=== PATIENT | male | born 1945 | race Caucasian/White ===

== ENCOUNTER 2017-06-18 09:59 | Emergency (ER) | payer MEDICARE ==
[~2017-06-18] VITALS: Ht 170.2 cm; Wt 86.4 kg
[~2017-06-18 09:59] MED LIST: ASPI81 PO; ATEN25TA PO
[2017-06-18] MEDS ORDERED: TAMS0.4C32 PO (10:31)
[2017-06-18 12:50] VITALS: BP 154/94
[2017-06-18 12:59] LABS: APPEARANCE,URINE CLEAR (CLEAR); GLUCOSE, URINE (UA) NEGATIVE (NEGATIVE); KETONES,URINE NEGATIVE (NEGATIVE); LEUKOCYTE ESTERASE ,URINE NEGATIVE (NEGATIVE); OCCULT BLOOD,URINE NEGATIVE (NEGATIVE); PH,URINE 5.5 (5.0-8.0); PROTEIN,URINE NEGATIVE (NEGATIVE)
[2017-06-18 13:02] LABS: ADD UA MICROSCOPIC NO
== END 2017-06-18 13:46 | disposition home or self-care (01) ==
LOC: EMS 10:00
DX: R33.9 Retention of urine, unspecified (principal); I10 Essential (primary) hypertension; E78.00 Pure hypercholesterolemia, unspecified; I25.2 Old myocardial infarction
CPT/HCPCS: 51702; 99284

== ENCOUNTER 2017-07-23 09:23 | Emergency (ER) | payer MEDICARE ==
[~2017-07-23] VITALS: Ht 170.2 cm; Wt 86.4 kg
[~2017-07-23 09:23] MED LIST changes: +TAMS0.4C32 PO
[2017-07-23 10:07] VITALS: BP 158/89
[2017-07-23 11:04] LABS: APPEARANCE,URINE CLOUDY (CLEAR); BILIRUBIN,URINE NEGATIVE (NEGATIVE); GLUCOSE, URINE (UA) NEGATIVE (NEGATIVE); KETONES,URINE NEGATIVE (NEGATIVE); LEUKOCYTE ESTERASE ,URINE MODERATE (NEGATIVE); NITRATE,URINE NEGATIVE (NEGATIVE); OCCULT BLOOD,URINE LARGE (NEGATIVE); PH,URINE 5.5 (5.0-8.0); PROTEIN,URINE NEGATIVE (NEGATIVE); UROBILINOGEN,URINE 0.2 mg/dL (<=1.0)
[2017-07-23 11:12] LABS: RBC,URINE >100 /HPF (0-2)
[2017-07-23 11:13] LABS: WBC,URINE 26-50 /HPF (0-5)
[2017-07-23 11:14] LABS: BACTERIA,URINE Many /HPF (None Seen)
[2017-07-23 11:15] LABS: MUCUS,URINE Rare LPF (None Seen); SQUAMOUS EPITHELIAL CELL,UR None Seen /LPF (None Seen)
== END 2017-07-23 10:55 | disposition home or self-care (01) ==
LOC: EMS 09:24
DX: R33.9 Retention of urine, unspecified (principal); N39.0 Urinary tract infection, site not specified; I10 Essential (primary) hypertension; E78.00 Pure hypercholesterolemia, unspecified; I25.2 Old myocardial infarction
CPT/HCPCS: 51702; 87086; 99284

== ENCOUNTER 2018-04-18 18:43 | Emergency (ER) | payer MEDICARE ==
[~2018-04-18] VITALS: Ht 170.2 cm; Wt 100.0 kg
[2018-04-18] MEDS ORDERED: SULF1TAB42 PO (18:52)
[2018-04-18 20:39] LABS: APPEARANCE,URINE CLEAR (CLEAR); BILIRUBIN,URINE NEGATIVE (NEGATIVE); GLUCOSE, URINE (UA) NEGATIVE (NEGATIVE); KETONES,URINE NEGATIVE (NEGATIVE); LEUKOCYTE ESTERASE ,URINE NEGATIVE (NEGATIVE); NITRATE,URINE NEGATIVE (NEGATIVE); OCCULT BLOOD,URINE TRACE (NEGATIVE); PH,URINE 5.5 (5.0-8.0); PROTEIN,URINE NEGATIVE (NEGATIVE); UROBILINOGEN,URINE 0.2 mg/dL (<=1.0)
[2018-04-18 20:49] LABS: BACTERIA,URINE None Seen /HPF (None Seen); RBC,URINE 0-2 /HPF (0-2); SQUAMOUS EPITHELIAL CELL,UR Rare /LPF (None Seen); WBC,URINE 0-2 /HPF (0-5)
[2018-04-18 20:50] LABS: MUCUS,URINE Few LPF (None Seen)
[2018-04-18 21:24] VITALS: BP 148/81
== END 2018-04-18 21:51 | disposition home or self-care (01) ==
LOC: EMS 18:44
DX: N40.1 Benign prostatic hyperplasia with lower urinary tract symptoms (principal); R33.8 Other retention of urine; E78.00 Pure hypercholesterolemia, unspecified; I10 Essential (primary) hypertension; I25.2 Old myocardial infarction; Z79.82 Long term (current) use of aspirin; Z79.899 Other long term (current) drug therapy
CPT/HCPCS: 51702

== ENCOUNTER 2018-04-23 02:42 | Emergency (ER) | payer MEDICARE ==
[~2018-04-23] VITALS: Ht 170.2 cm; Wt 88.6 kg
[~2018-04-23 02:42] MED LIST changes: +SULF1TAB42 PO
[2018-04-23] MEDS ORDERED: ATOR10TA84 PO (02:54)
[2018-04-23 05:05] LABS: APPEARANCE,URINE CLEAR (CLEAR); BILIRUBIN,URINE NEGATIVE (NEGATIVE); GLUCOSE, URINE (UA) NEGATIVE (NEGATIVE); KETONES,URINE NEGATIVE (NEGATIVE); LEUKOCYTE ESTERASE ,URINE TRACE (NEGATIVE); NITRATE,URINE NEGATIVE (NEGATIVE); OCCULT BLOOD,URINE LARGE (NEGATIVE); PROTEIN,URINE TRACE (NEGATIVE); UROBILINOGEN,URINE 0.2 mg/dL (<=1.0)
[2018-04-23 05:23] LABS: BACTERIA,URINE Few /HPF (None Seen); RBC,URINE 51-100 /HPF (0-2)
[2018-04-23 05:31] VITALS: BP 191/99
== END 2018-04-23 05:43 | disposition home or self-care (01) ==
LOC: EMS 02:43
DX: T83.098A Other mechanical complication of other urinary catheter, initial encounter (principal); N40.1 Benign prostatic hyperplasia with lower urinary tract symptoms; R33.8 Other retention of urine; R31.9 Hematuria, unspecified; I10 Essential (primary) hypertension; E78.00 Pure hypercholesterolemia, unspecified; I25.2 Old myocardial infarction; Z79.82 Long term (current) use of aspirin; Z79.899 Other long term (current) drug therapy; Y84.6 Urinary catheterization as the cause of abnormal reaction of the patient, or of later complication, without mention of misadventure at the time of the procedure; Y92.89 Other specified places as the place of occurrence of the external cause
CPT/HCPCS: 51702

== ENCOUNTER 2018-06-18 21:15 | Emergency (ER) | payer MEDICARE ==
[~2018-06-18] VITALS: Ht 170.2 cm; Wt 90.9 kg
[~2018-06-18 21:15] MED LIST changes: +ATOR10TA84 PO
[2018-06-18] MEDS ORDERED: LIDOCAINE 1% 10 ML VIAL INJ ONE (23:15)
[2018-06-18 23:42] VITALS: BP 142/82
== END 2018-06-18 23:46 | disposition home or self-care (01) ==
LOC: EMS 21:16
DX: L02.11 Cutaneous abscess of neck (principal); E78.00 Pure hypercholesterolemia, unspecified; I10 Essential (primary) hypertension; I25.2 Old myocardial infarction; Z79.82 Long term (current) use of aspirin; Z79.899 Other long term (current) drug therapy
CPT/HCPCS: 10060; 99283; J3490

== ENCOUNTER 2019-03-23 01:03 | Emergency (ER) | payer MEDICARE ==
[~2019-03-23] VITALS: Ht 170.2 cm; Wt 86.4 kg
[~2019-03-23 01:03] MED LIST changes: +TAMS-13 PO; -TAMS0.4C32 PO
[2019-03-23 03:16] LABS: APPEARANCE,URINE CLOUDY (CLEAR); BILIRUBIN,URINE NEGATIVE (NEGATIVE); GLUCOSE, URINE (UA) NEGATIVE (NEGATIVE); KETONES,URINE NEGATIVE (NEGATIVE); LEUKOCYTE ESTERASE ,URINE LARGE (NEGATIVE); NITRATE,URINE NEGATIVE (NEGATIVE); OCCULT BLOOD,URINE LARGE (NEGATIVE); PH,URINE 6.5 (5.0-8.0); PROTEIN,URINE POS 1+ (NEGATIVE); UROBILINOGEN,URINE 0.2 mg/dL (<=1.0)
[2019-03-23 03:33] LABS: BACTERIA,URINE Many /HPF (None Seen); RBC,URINE 26-50 /HPF (0-2); SQUAMOUS EPITHELIAL CELL,UR Rare /LPF (None Seen)
[2019-03-23] MEDS ORDERED: CEPHALEXIN MONOHYDRATE 500 MG CAPSULE PO ONE (03:45)
[2019-03-23 04:01] VITALS: BP 132/68
== END 2019-03-23 04:00 | disposition home or self-care (01) ==
LOC: EMS 01:03
DX: N39.0 Urinary tract infection, site not specified (principal); R33.9 Retention of urine, unspecified; I10 Essential (primary) hypertension; I25.2 Old myocardial infarction; E78.00 Pure hypercholesterolemia, unspecified
CPT/HCPCS: 51702; 87086

== ENCOUNTER 2019-10-05 10:51 | Emergency (ER) | payer MEDICARE ==
[~2019-10-05] VITALS: Ht 165.1 cm; Wt 75.0 kg
[~2019-10-05 10:51] MED LIST changes: -ASPI81 PO; -SULF1TAB42 PO
[2019-10-05] MEDS ORDERED: TAMS-13 PO (11:06)
[2019-10-05 11:48] LABS: BILIRUBIN,URINE NEGATIVE (NEGATIVE); GLUCOSE, URINE (UA) NEGATIVE (NEGATIVE); KETONES,URINE NEGATIVE (NEGATIVE); LEUKOCYTE ESTERASE ,URINE MODERATE (NEGATIVE); NITRATE,URINE NEGATIVE (NEGATIVE); OCCULT BLOOD,URINE LARGE (NEGATIVE); PROTEIN,URINE NEGATIVE (NEGATIVE); UROBILINOGEN,URINE 0.2 mg/dL (<=1.0)
[2019-10-05 12:01] LABS: APPEARANCE,URINE SLIGHTLY CLOUDY (CLEAR)
[2019-10-05 12:08] LABS: BACTERIA,URINE Moderate /HPF (None Seen)
[2019-10-05] MEDS ORDERED: CIPROFLOXACIN HCL 250 MG TABLET PO ONE (14:00)
[2019-10-05 14:10] VITALS: BP 142/55
== END 2019-10-05 14:20 | disposition home or self-care (01) ==
LOC: EMS 10:52
DX: N39.0 Urinary tract infection, site not specified (principal); N32.0 Bladder-neck obstruction; R33.9 Retention of urine, unspecified; I10 Essential (primary) hypertension; E78.00 Pure hypercholesterolemia, unspecified; I25.2 Old myocardial infarction
CPT/HCPCS: 51702; 87086

== ENCOUNTER 2019-10-14 08:11 | Emergency (ER) | payer MEDICARE ==
[~2019-10-14] VITALS: Ht 170.2 cm; Wt 86.4 kg
[~2019-10-14 08:11] MED LIST changes: -ATEN25TA PO; -ATOR10TA84 PO
[2019-10-14 09:28] VITALS: BP 120/89
== END 2019-10-14 09:30 | disposition home or self-care (01) ==
LOC: EMS 08:23
DX: R33.9 Retention of urine, unspecified (principal); I10 Essential (primary) hypertension; I25.2 Old myocardial infarction; E78.00 Pure hypercholesterolemia, unspecified
CPT/HCPCS: 51702

== ENCOUNTER 2019-10-18 10:35 | Emergency (ER) | payer MEDICARE ==
[~2019-10-18] VITALS: Ht 170.2 cm; Wt 86.4 kg
[2019-10-18] MEDS ORDERED: FESO4TAB PO (10:40)
[2019-10-18 12:08] LABS: BASOPHILS % (AUTO) 0.8 % (0.0-2.0); EOSINOPHILS % (AUTO) 1.8 % (1.0-6.0); HEMATOCRIT 48.6 % (41-53); HEMOGLOBIN 16.6 g/dL (13.5-17.5); LYMPHOCYTES # (AUTO) 3.1 K/uL (1.0-4.8); LYMPHOCYTES % (AUTO) 30.4 % (22.0-44.0); MEAN CORPUSCULAR HEMOGLOBIN 28.8 pg (26.0-34.0); MEAN CORPUSCULAR HGB CONC 34.2 G/dL (31.0-37.0); MEAN CORPUSCULAR VOLUME 84 fL (80-100); MONOCYTES # (AUTO) 0.9 K/uL (0.1-1.0); MONOCYTES % (AUTO) 9.2 % (2.0-9.0); NEUTROPHILS # (AUTO) 5.8 K/uL (1.8-7.7); NEUTROPHILS % (AUTO) 57.8 % (40.0-70.0); PLATELET COUNT (AUTO) 168 K/uL (150-450); RED BLOOD CELL COUNT(AUTO) 5.78 MIL/uL (4.50-5.90); RED CELL DISTRIBUTION WIDTH 13.3 % (11.5-14.5)
[2019-10-18 12:17] LABS: ANION GAP 6 mmol/L (8-16); CALCIUM, TOTAL 9.8 mg/dL (8.8-10.5); CARBON DIOXIDE 29 mmol/L (22-29); CHLORIDE 100 mmol/L (98-107); CREATININE 0.72 mg/dL (0.60-1.30); GLUCOSE,RANDOM 129 mg/dL (70-110); POTASSIUM 4.5 mmol/L (3.5-5.1); SODIUM SERUM 135 mmol/L (136-145); UREA NITROGEN, BLOOD 14 mg/dL (7-18)
[2019-10-18 12:18] LABS: GLOMERULAR FILTR. RATE CALC > 60 mL/min (>60)
[2019-10-18 12:27] LABS: APPEARANCE,URINE CLOUDY (CLEAR); BILIRUBIN,URINE NEGATIVE (NEGATIVE); GLUCOSE, URINE (UA) NEGATIVE (NEGATIVE); KETONES,URINE NEGATIVE (NEGATIVE); LEUKOCYTE ESTERASE ,URINE LARGE (NEGATIVE); NITRATE,URINE NEGATIVE (NEGATIVE); OCCULT BLOOD,URINE LARGE (NEGATIVE); PROTEIN,URINE TRACE (NEGATIVE); UROBILINOGEN,URINE 0.2 mg/dL (<=1.0)
[2019-10-18 12:41] LABS: BACTERIA,URINE Many /HPF (None Seen); RBC,URINE Full Field /HPF (0-2); SQUAMOUS EPITHELIAL CELL,UR Moderate /LPF (None Seen); WBC,URINE Full Field /HPF (0-5)
[2019-10-18] MEDS ORDERED: CEPHALEXIN MONOHYDRATE 500 MG CAPSULE PO ONE (12:45)
[2019-10-18 16:00] VITALS: BP 123/71
== END 2019-10-18 16:06 | disposition home or self-care (01) ==
LOC: EMS 10:40
DX: R33.9 Retention of urine, unspecified (principal); N39.0 Urinary tract infection, site not specified; R31.9 Hematuria, unspecified; I10 Essential (primary) hypertension; E78.00 Pure hypercholesterolemia, unspecified; Z79.899 Other long term (current) drug therapy
CPT/HCPCS: 51702; 87086

== ENCOUNTER 2020-02-13 08:49 | Emergency (ER) | payer MEDICARE ==
[~2020-02-13] VITALS: Ht 170.2 cm; Wt 88.6 kg
[~2020-02-13 08:49] MED LIST changes: +FESO4TAB PO
[2020-02-13] MEDS ORDERED: ATEN-72 PO (08:55)
[2020-02-13] MEDS ORDERED: ATOR10TA84 PO (08:55)
[2020-02-13] MEDS ORDERED: ASPI-728 PO (08:55)
[2020-02-13 09:31] LABS: BASOPHILS % (AUTO) 0.9 % (0.0-2.0); EOSINOPHILS % (AUTO) 3.9 % (1.0-6.0); HEMATOCRIT 46.7 % (41-53); HEMOGLOBIN 15.8 g/dL (13.5-17.5); LYMPHOCYTES # (AUTO) 1.6 K/uL (1.0-4.8); LYMPHOCYTES % (AUTO) 32.5 % (22.0-44.0); MEAN CORPUSCULAR HEMOGLOBIN 28.7 pg (26.0-34.0); MEAN CORPUSCULAR HGB CONC 33.8 G/dL (31.0-37.0); MEAN CORPUSCULAR VOLUME 85 fL (80-100); MONOCYTES # (AUTO) 0.4 K/uL (0.1-1.0); MONOCYTES % (AUTO) 7.6 % (2.0-9.0); NEUTROPHILS # (AUTO) 2.8 K/uL (1.8-7.7); NEUTROPHILS % (AUTO) 55.1 % (40.0-70.0); PLATELET COUNT (AUTO) 132 K/uL (150-450); RED CELL DISTRIBUTION WIDTH 13.9 % (11.5-14.5)
[2020-02-13 09:46] LABS: APPEARANCE,URINE CLEAR (CLEAR); BILIRUBIN,URINE NEGATIVE (NEGATIVE); GLUCOSE, URINE (UA) NEGATIVE (NEGATIVE); KETONES,URINE NEGATIVE (NEGATIVE); LEUKOCYTE ESTERASE ,URINE NEGATIVE (NEGATIVE); NITRATE,URINE NEGATIVE (NEGATIVE); OCCULT BLOOD,URINE MODERATE (NEGATIVE); PH,URINE 5.5 (5.0-8.0); PROTEIN,URINE NEGATIVE (NEGATIVE); UROBILINOGEN,URINE 0.2 mg/dL (<=1.0)
[2020-02-13 09:48] LABS: ANION GAP 9 mmol/L (8-16); CALCIUM, TOTAL 8.9 mg/dL (8.8-10.5); CARBON DIOXIDE 24 mmol/L (22-29); CHLORIDE 103 mmol/L (98-107); CREATININE 0.78 mg/dL (0.60-1.30); GLOMERULAR FILTR. RATE CALC > 60 mL/min (>60); GLUCOSE,RANDOM 141 mg/dL (70-110); SODIUM SERUM 136 mmol/L (136-145); UREA NITROGEN, BLOOD 17 mg/dL (7-18)
[2020-02-13 10:01] LABS: BACTERIA,URINE None Seen /HPF (None Seen); WBC,URINE None Seen /HPF (0-5)
[2020-02-13 10:56] VITALS: BP 136/62
== END 2020-02-13 10:57 | disposition home or self-care (01) ==
LOC: EMS 08:53
DX: N40.1 Benign prostatic hyperplasia with lower urinary tract symptoms (principal); R33.8 Other retention of urine; E78.00 Pure hypercholesterolemia, unspecified; I10 Essential (primary) hypertension; Z79.82 Long term (current) use of aspirin; Z79.899 Other long term (current) drug therapy
CPT/HCPCS: 51702

== ENCOUNTER 2020-02-23 05:38 | Emergency (ER) | payer MEDICARE ==
[~2020-02-23] VITALS: Ht 170.2 cm; Wt 88.6 kg
[~2020-02-23 05:38] MED LIST changes: +ASPI-728 PO; +ATEN-72 PO; +ATOR10TA84 PO; -FESO4TAB PO
[2020-02-23 07:30] VITALS: BP 141/70
== END 2020-02-23 08:40 | disposition home or self-care (01) ==
LOC: EMS 05:38
DX: R33.9 Retention of urine, unspecified (principal); E78.00 Pure hypercholesterolemia, unspecified; I10 Essential (primary) hypertension; I25.2 Old myocardial infarction
CPT/HCPCS: 51701

== ENCOUNTER 2020-05-19 09:26 | Emergency (ER) | payer MEDICARE ==
[~2020-05-19] VITALS: Ht 167.6 cm; Wt 77.3 kg
[2020-05-19 11:26] LABS: APPEARANCE,URINE CLEAR (CLEAR); BILIRUBIN,URINE NEGATIVE (NEGATIVE); GLUCOSE, URINE (UA) NEGATIVE (NEGATIVE); KETONES,URINE NEGATIVE (NEGATIVE); LEUKOCYTE ESTERASE ,URINE TRACE (NEGATIVE); NITRATE,URINE NEGATIVE (NEGATIVE); OCCULT BLOOD,URINE SMALL (NEGATIVE); PROTEIN,URINE NEGATIVE (NEGATIVE); UROBILINOGEN,URINE 0.2 mg/dL (<=1.0)
[2020-05-19 11:34] LABS: BACTERIA,URINE None Seen /HPF (None Seen)
[2020-05-19 12:29] VITALS: BP 182/89
== END 2020-05-19 12:51 | disposition home or self-care (01) ==
LOC: EMS 09:26
DX: R33.9 Retention of urine, unspecified (principal); R10.84 Generalized abdominal pain; E78.00 Pure hypercholesterolemia, unspecified; I10 Essential (primary) hypertension; I25.2 Old myocardial infarction
CPT/HCPCS: 51702; 81001-TC; Z7502

== ENCOUNTER 2020-09-11 01:00 | Emergency (ER) | payer MEDICARE ==
[~2020-09-11] VITALS: Ht 170.2 cm; Wt 90.9 kg
[~2020-09-11 01:00] MED LIST changes: +ASPI-1450 PO; -ASPI-728 PO
[2020-09-11] MEDS ORDERED: CIMETIDINE PO (01:06)
[2020-09-11 02:03] LABS: APPEARANCE,URINE TURBID (CLEAR); BILIRUBIN,URINE NEGATIVE (NEGATIVE); GLUCOSE, URINE (UA) NEGATIVE (NEGATIVE); KETONES,URINE NEGATIVE (NEGATIVE); LEUKOCYTE ESTERASE ,URINE LARGE (NEGATIVE); NITRATE,URINE POSITIVE (NEGATIVE); OCCULT BLOOD,URINE LARGE (NEGATIVE); PH,URINE 6.5 (5.0-8.0); PROTEIN,URINE POS 1+ (NEGATIVE); UROBILINOGEN,URINE 0.2 mg/dL (<=1.0)
[2020-09-11 02:07] LABS: BACTERIA,URINE Many /HPF (None Seen); RBC,URINE >100 /HPF (0-2); WBC,URINE >100 /HPF (0-5)
[2020-09-11] MEDS ORDERED: CEPHALEXIN MONOHYDRATE 500 MG CAPSULE PO ONE (02:15)
[2020-09-11 02:44] VITALS: BP 126/68
== END 2020-09-11 02:53 | disposition home or self-care (01) ==
LOC: EMS 01:02
DX: T83.018A Breakdown (mechanical) of other urinary catheter, initial encounter (principal); Y84.6 Urinary catheterization as the cause of abnormal reaction of the patient, or of later complication, without mention of misadventure at the time of the procedure; Y73.8 Miscellaneous gastroenterology and urology devices associated with adverse incidents, not elsewhere classified
CPT/HCPCS: 51702; 87086; 99284; 81001-TC; 87077-TC; Z7502; Z7610

== ENCOUNTER 2020-09-30 09:51 | Emergency (ER) | payer MEDICARE ==
[~2020-09-30] VITALS: Ht 170.2 cm; Wt 86.4 kg
[~2020-09-30 09:51] MED LIST changes: +CIMETIDINE PO
[2020-09-30 12:24] LABS: APPEARANCE,URINE TURBID (CLEAR); BILIRUBIN,URINE NEGATIVE (NEGATIVE); GLUCOSE, URINE (UA) NEGATIVE (NEGATIVE); KETONES,URINE NEGATIVE (NEGATIVE); LEUKOCYTE ESTERASE ,URINE LARGE (NEGATIVE); NITRATE,URINE POSITIVE (NEGATIVE); OCCULT BLOOD,URINE LARGE (NEGATIVE); PROTEIN,URINE SEE CONFIRM (NEGATIVE)
[2020-09-30 12:44] LABS: SULFOSALICYLIC ACID,URINE 3+ (Negative)
[2020-09-30 12:45] LABS: BACTERIA,URINE Many /HPF (None Seen); RBC,URINE Full Field /HPF (0-2); TRIPLE PHOSPHATE CRYSTAL,UR Many /LPF (None Seen); WBC,URINE 26-50 /HPF (0-5)
[2020-09-30] MEDS ORDERED: CEPHALEXIN MONOHYDRATE 500 MG CAPSULE PO ONE (13:00)
[2020-09-30 13:15] VITALS: BP 142/71
== END 2020-09-30 13:28 | disposition home or self-care (01) ==
LOC: EMS 10:08
DX: T83.091A Other mechanical complication of indwelling urethral catheter, initial encounter (principal); N39.0 Urinary tract infection, site not specified; E78.00 Pure hypercholesterolemia, unspecified; I10 Essential (primary) hypertension; I25.2 Old myocardial infarction; Y84.6 Urinary catheterization as the cause of abnormal reaction of the patient, or of later complication, without mention of misadventure at the time of the procedure
CPT/HCPCS: 51701; 87086; 99283

== ENCOUNTER 2020-10-16 04:21 | Emergency (ER) | payer MEDICARE ==
[~2020-10-16] VITALS: Ht 170.2 cm; Wt 88.6 kg
[2020-10-16 07:18] LABS: APPEARANCE,URINE TURBID (CLEAR); GLUCOSE, URINE (UA) NEGATIVE (NEGATIVE); KETONES,URINE 40 mg/dL (NEGATIVE); LEUKOCYTE ESTERASE ,URINE LARGE (NEGATIVE); NITRATE,URINE POSITIVE (NEGATIVE); OCCULT BLOOD,URINE LARGE (NEGATIVE); PROTEIN,URINE SEE CONFIRM (NEGATIVE)
[2020-10-16 07:21] LABS: BILIRUBIN,URINE PRELIM. POSITIVE (NEGATIVE)
[2020-10-16 07:36] LABS: SULFOSALICYLIC ACID,URINE 2+ (Negative)
[2020-10-16 07:37] LABS: BACTERIA,URINE None Seen /HPF (None Seen); RBC,URINE Full Field /HPF (0-2); SQUAMOUS EPITHELIAL CELL,UR Few /LPF (None Seen)
[2020-10-16 07:45] VITALS: BP 148/79
== END 2020-10-16 08:10 | disposition home or self-care (01) ==
LOC: EMS 04:22
DX: T83.018A Breakdown (mechanical) of other urinary catheter, initial encounter (principal); R31.9 Hematuria, unspecified; E78.00 Pure hypercholesterolemia, unspecified; I10 Essential (primary) hypertension; I25.2 Old myocardial infarction; N40.0 Benign prostatic hyperplasia without lower urinary tract symptoms; Z79.899 Other long term (current) drug therapy; Z79.82 Long term (current) use of aspirin; X58.XXXA Exposure to other specified factors, initial encounter
CPT/HCPCS: 51702; 81001; 81002; 87077; 87086; 87186; 99285; Z7502

== ENCOUNTER 2020-10-17 02:57 | Emergency (ER) | payer MEDICARE ==
[~2020-10-17] VITALS: Ht 170.2 cm; Wt 89.5 kg
[2020-10-17 04:29] LABS: BASOPHILS % (AUTO) 0.6 % (0.0-2.0); EOSINOPHILS % (AUTO) 1.2 % (1.0-6.0); HEMATOCRIT 39.5 % (41-53); HEMOGLOBIN 13.8 g/dL (13.5-17.5); LYMPHOCYTES % (AUTO) 19.8 % (22.0-44.0); MEAN CORPUSCULAR HEMOGLOBIN 29.3 pg (26.0-34.0); MEAN CORPUSCULAR HGB CONC 34.9 G/dL (31.0-37.0); MEAN CORPUSCULAR VOLUME 84 fL (80-100); MONOCYTES # (AUTO) 0.8 K/uL (0.1-1.0); MONOCYTES % (AUTO) 7.7 % (2.0-9.0); NEUTROPHILS # (AUTO) 7.2 K/uL (1.8-7.7); NEUTROPHILS % (AUTO) 70.7 % (40.0-70.0); PLATELET COUNT (AUTO) 191 K/uL (150-450); RED CELL DISTRIBUTION WIDTH 13.2 % (11.5-14.5)
[2020-10-17 04:35] LABS: ANION GAP 11 mmol/L (8-16); CALCIUM, TOTAL 9.2 mg/dL (8.8-10.5); CARBON DIOXIDE 24 mmol/L (22-29); CHLORIDE 102 mmol/L (98-107); CREATININE 0.87 mg/dL (0.60-1.30); GLUCOSE,RANDOM 143 mg/dL (70-110); POTASSIUM 4.5 mmol/L (3.5-5.1); SODIUM SERUM 137 mmol/L (136-145); UREA NITROGEN, BLOOD 17 mg/dL (7-18)
[2020-10-17 04:36] LABS: GLOMERULAR FILTR. RATE CALC > 60 mL/min (>60)
[2020-10-17 04:41] LABS: ALANINE AMINOTRANSFERASE 39 U/L (12-78); ALBUMIN 3.6 g/dL (3.4-5.0); ALKALINE PHOSPHATASE 82 U/L (46-116); ASPARTATE AMINOTRANSFERASE 16 U/L (15-37); BILIRUBIN,TOTAL 0.7 mg/dL (0.1-1.0)
[2020-10-17 04:42] LABS: INR 1.1 (0.9-1.1); PROTHROMBIN TIME 11.4 SEC (9.4-11.6)
[2020-10-17 06:25] VITALS: BP 124/81
== END 2020-10-17 08:03 | disposition home or self-care (01) ==
LOC: EMS 02:58
DX: R31.9 Hematuria, unspecified (principal); I10 Essential (primary) hypertension; E78.00 Pure hypercholesterolemia, unspecified; I25.2 Old myocardial infarction; Z79.82 Long term (current) use of aspirin
CPT/HCPCS: 51700; 74176; 80053; 85025; 85610; 85730; 99285

== ENCOUNTER 2020-11-01 18:28 | Emergency (ER) | payer MEDICARE ==
[~2020-11-01] VITALS: Ht 170.2 cm; Wt 87.7 kg
[2020-11-01] MEDS: ONDANSETRON HCL 4 MG TABLET PO ONE (20:18)
[2020-11-01] MEDS: MECLIZINE HCL 25 MG TABLET PO ONE (20:18)
[2020-11-01] MEDS: AmLODIPine BESYLATE 5 MG TABLET PO ONE (20:19)
[2020-11-01] MEDS: ACETAMINOPHEN 500 MG TABLET PO ONE (20:19)
[2020-11-01 21:14] LABS: BASOPHILS % (AUTO) 1.2 % (0.0-2.0); EOSINOPHILS % (AUTO) 3.4 % (1.0-6.0); HEMATOCRIT 38.3 % (41-53); HEMOGLOBIN 12.8 g/dL (13.5-17.5); LYMPHOCYTES # (AUTO) 1.9 K/uL (1.0-4.8); LYMPHOCYTES % (AUTO) 29.3 % (22.0-44.0); MEAN CORPUSCULAR HEMOGLOBIN 28.7 pg (26.0-34.0); MEAN CORPUSCULAR HGB CONC 33.5 G/dL (31.0-37.0); MEAN CORPUSCULAR VOLUME 86 fL (80-100); MONOCYTES # (AUTO) 0.6 K/uL (0.1-1.0); MONOCYTES % (AUTO) 8.4 % (2.0-9.0); NEUTROPHILS # (AUTO) 3.8 K/uL (1.8-7.7); NEUTROPHILS % (AUTO) 57.7 % (40.0-70.0); PLATELET COUNT (AUTO) 187 K/uL (150-450); RED BLOOD CELL COUNT(AUTO) 4.47 MIL/uL (4.50-5.90); RED CELL DISTRIBUTION WIDTH 14.4 % (11.5-14.5)
[2020-11-01 21:27] LABS: ANION GAP 9 mmol/L (8-16); CALCIUM, TOTAL 8.8 mg/dL (8.8-10.5); CARBON DIOXIDE 28 mmol/L (22-29); CHLORIDE 102 mmol/L (98-107); CREATININE 0.59 mg/dL (0.60-1.30); GLUCOSE,RANDOM 97 mg/dL (70-110); POTASSIUM 3.9 mmol/L (3.5-5.1); SODIUM SERUM 139 mmol/L (136-145); UREA NITROGEN, BLOOD 14 mg/dL (7-18)
[2020-11-01 21:31] LABS: GLOMERULAR FILTR. RATE CALC > 60 mL/min (>60)
[2020-11-01 21:45] VITALS: BP 136/71
== END 2020-11-01 22:16 | disposition home or self-care (01) ==
LOC: EMS 18:30
DX: R42 Dizziness and giddiness (principal); I10 Essential (primary) hypertension; I25.10 Atherosclerotic heart disease of native coronary artery without angina pectoris
CPT/HCPCS: 36415; 80048; 84484; 85025; 93005; 99284; Q0162

== ENCOUNTER 2020-11-30 11:36 | Emergency (ER) | payer MEDICARE ==
[~2020-11-30] VITALS: Ht 170.2 cm; Wt 87.7 kg
[2020-11-30 11:41] VITALS: BP 139/73
[2020-11-30] MEDS ORDERED: AMLO5TAB66 PO (11:42)
== END 2020-11-30 13:04 | disposition home or self-care (01) ==
LOC: EMS 11:37
DX: T83.018A Breakdown (mechanical) of other urinary catheter, initial encounter (principal); I25.10 Atherosclerotic heart disease of native coronary artery without angina pectoris; E78.00 Pure hypercholesterolemia, unspecified; I10 Essential (primary) hypertension; I25.2 Old myocardial infarction; Z79.82 Long term (current) use of aspirin; Y84.6 Urinary catheterization as the cause of abnormal reaction of the patient, or of later complication, without mention of misadventure at the time of the procedure
CPT/HCPCS: 51702; 99284; Z7502

== ENCOUNTER 2025-01-19 13:13 | Emergency (ER) | payer MEDICARE ==
[~2025-01-19] VITALS: Ht 162.6 cm; Wt 89.5 kg
[~2025-01-19 13:13] MED LIST changes: +AMLO5TAB66 PO; +ATOR10TA PO; -ATOR10TA84 PO; -TAMS-13 PO; +TAMS0.4C94 PO
[2025-01-19 13:14] VITALS: BP 169/92; PULSE 62; RESP 18; TEMP 98.2; O2SAT 95
[2025-01-19 14:17] LABS: PLATELET COUNT (AUTO) 149 K/uL (150-450); RED BLOOD CELL COUNT(AUTO) 5.36 MIL/uL (4.50-5.90); RED CELL DISTRIBUTION WIDTH 13.9 % (11.5-14.5); WHITE BLOOD COUNT (AUTO) 5.9 K/uL (4.5-11.0)
[2025-01-19 14:19] LABS: CALCIUM, TOTAL 8.6 mg/dL (8.8-10.5); CREATININE 0.67 mg/dL (0.60-1.30); GLOMERULAR FILTR. RATE CALC > 60 mL/min (>60); GLUCOSE,RANDOM 125 mg/dL (70-110); SODIUM SERUM 138 mmol/L (136-145); UREA NITROGEN, BLOOD 12 mg/dL (7-18)
[2025-01-19 15:28] LABS: APPEARANCE,URINE HAZY (CLEAR); GLUCOSE, URINE (UA) NEGATIVE (NEGATIVE); LEUKOCYTE ESTERASE ,URINE LARGE (NEGATIVE); NITRATE,URINE NEGATIVE (NEGATIVE); OCCULT BLOOD,URINE SMALL (NEGATIVE); SPECIFIC GRAVITIY, URINE 1.010 (1.003-1.030)
[2025-01-19 15:41] LABS: SQUAMOUS EPITHELIAL CELL,UR Rare /LPF (None Seen)
== END 2025-01-19 15:05 | disposition home or self-care (01) ==
LOC: EMS 13:13
DX: R33.8 Other retention of urine (principal); E78.00 Pure hypercholesterolemia, unspecified; I10 Essential (primary) hypertension; I25.10 Atherosclerotic heart disease of native coronary artery without angina pectoris; I25.2 Old myocardial infarction; N40.1 Benign prostatic hyperplasia with lower urinary tract symptoms; Z95.5 Presence of coronary angioplasty implant and graft; Z79.82 Long term (current) use of aspirin; Z79.899 Other long term (current) drug therapy
CPT/HCPCS: 51702; 80048; 81001; 85025; 87077; 87086; 87186; 99284

== ENCOUNTER 2025-01-21 12:35 | Emergency (ER) | payer MEDICARE ==
[~2025-01-21] VITALS: Ht 162.6 cm; Wt 89.0 kg
[2025-01-21 12:43] VITALS: TEMP 98.1
[2025-01-21 13:15] VITALS: BP 141/76; PULSE 53; RESP 17; O2SAT 94
== END 2025-01-21 14:21 | disposition home or self-care (01) ==
LOC: EMS 12:35
DX: T83.038A Leakage of other urinary catheter, initial encounter (principal); E78.00 Pure hypercholesterolemia, unspecified; I10 Essential (primary) hypertension; I25.10 Atherosclerotic heart disease of native coronary artery without angina pectoris; N40.1 Benign prostatic hyperplasia with lower urinary tract symptoms; R33.8 Other retention of urine; Z79.82 Long term (current) use of aspirin; Z79.899 Other long term (current) drug therapy; Y84.6 Urinary catheterization as the cause of abnormal reaction of the patient, or of later complication, without mention of misadventure at the time of the procedure
CPT/HCPCS: 51702; 99284; Z7502